=== PATIENT | female | born 1975 | race Caucasian/White ===

== ENCOUNTER → 2017-02-05 | Outpatient (CLI) | payer OTHER ==
--- NOTE | 2017-02-06 08:26 | MM ---
Reason for exam: screening (asymptomatic). Last mammogram was performed 4 years and 2 months ago. History: Taking hormonal contraceptives beginning at age 18. Physical Findings: A clinical breast exam by your physician is recommended on an annual basis and results should be correlated with mammographic findings. MG Screening Mammo w CAD Bilateral CC and MLO view(s) were taken. Prior study comparison: December 17, 2012, bilateral digital screening mammo w/CAD. December 30, 2010, [facility] DIGITAL RIGHT MAMMOGRAM w/CAD. The breast tissue is heterogeneously dense. This may lower the sensitivity of mammography. There is no discrete abnormality. No significant changes when compared with prior studies. ASSESSMENT: Negative, BI-RAD 1 RECOMMENDATION: Routine screening mammogram of both breasts in 1 year.
== END ==
LOC: RADMAMWWP 07:52
PROVIDERS: ATTEND Obstetrics & Gynecology
DX: Z12.31 Encounter for screening mammogram for malignant neoplasm of breast (principal)

== ENCOUNTER 2020-07-20 20:41 | Emergency (ER) | payer OTHER ==
[2020-07-20 20:52] VITALS: RESP 18
--- NOTE | 2020-07-20 21:17 | ED ---
General Adult HPI - General Chief complaint: Dizziness Stated complaint: Dizzy,LFt arm numbness Time Seen by Provider: 07/20/20 20:53 Source: patient Mode of arrival: ambulatory Limitations: no limitations - History of Present Illness Initial comments: Dictation was produced using [employer] dictation software. please excuse any grammatical, word or spelling errors. This patient was cared for during a federal and state declared state of emergency secondary to Covid 19 Chief Complaint: 44-year-old feel presents with generalized weakness, dizziness and left upper extremity sensory deficit History of Present Illness: 44-year-old female 3 weeks ago patient the Moderna Covid vaccine. Patient states that since then she's been having progressive symptoms of worsening weakness, left arm paresthesias and dizziness. Patient also states that she felt like she felt flushed. Patient states her symptoms are getting worse tonight her symptoms were the worst problem. Accompanied to the emergency department. Patient has no medical problems. She does have history of ALLERGIES in full sometimes take Zyrtec. She does not take anything on a regular basis. She does have one primary complaint but states that whatever happened today was not right. She had one glass 1 at 4 PM today. States that her symptoms seem to have started at rest. She feels weak on her feet. She has no pain complaints. The ROS documented in this emergency department record has been reviewed and confirmed by me. Those systems with pertinent positive or negative responses have been documented in the HPI. All other systems are other negative and/or noncontributory. PHYSICAL EXAM: General Impression: Alert and oriented x3, not in acute distress HEENT: Normocephalic atraumatic, extra-ocular movements intact, pupils equal and reactive to light bilaterally, mucous membranes moist. Cardiovascular: Heart regular rate and rhythm Chest: Able to complete full sentences, no retractions, no tachypnea Abdomen: abdomen soft, non-tender, non-distended, no organomegaly Musculoskeletal: Pulses present and equal in all extremities, no peripheral edema Motor: no focal deficits noted Neurological: CN II-XII grossly intact, no focal motor or sensory deficits noted, NIH of 0, no gait ataxia Skin: Intact with no visualized rashes Psych: Normal affect and mood ED course: 44-year-old female presents to the emergency department for myriad of complaints. She states she does not feel right however physical examination is benign. She has reported tingly feeling from her lateral mid humerus down to her lateral mid forearm vital signs upon arrival are within acceptable limits. EKG interpretation: Ventricular rate 89, normal sinus rhythm,. Interval 120, QRS 86, QTC 464. No SC prolongation, no QTC prolongation, no ST or T-wave changes noted. No old EKG for comparison. Overall, this EKG is unremarkable Laboratory evaluation obtained. CBC, metabolic panel is unremarkable. TSH level is normal. Serum alcohol is negative. Computed tomography scan of the brain is unremarkable. Chest x-ray is nonacute. Patient reevaluated at bedside . At this point continues to clear what is causing patient's symptoms. She has no high-risk features. She looks clinically well. Patient is advised follow-up with her primary care physician for outpatient management of her symptoms. - Related Data Allergies Allergy/AdvReac Type Severity Reaction Status Date / Time sulfamethoxazole Allergy Unknown Verified 07/20/20 20:52 [From Bactrim] trimethoprim [From Bactrim] Allergy Unknown Verified 07/20/20 20:52 Review of Systems ROS Statement: Those systems with pertinent positive or pertinent negative responses have been documented in the HPI. ROS Other: All systems not noted in ROS Statement are negative. Past Medical History Past Medical History: Asthma History of Any Multi-Drug Resistant Organisms: None Reported Past Surgical History: No Surgical Hx Reported Past Psychological History: No Psychological Hx Reported Smoking Status: Current every day smoker Past Alcohol Use History: Occasional Past Drug Use History: None Reported General Exam Limitations: no limitations Course Vital Signs 07/20/20 20:49 Temperature 99 F Pulse Rate 105 H Respiratory 18 Rate Blood Pressure 145/86 O2 Sat by Pulse 100 Oximetry Medical Decision Making - Lab Data Result diagrams: 07/20/20 21:15 07/20/20 21:15 Lab Results 07/20/20 07/20/20 07/20/20 Range/Units 21:15 21:15 21:15 WBC 6.5 (3.8-10.6) k/uL RBC 3.95 (3.80-5.40) m/uL Hgb 13.0 (11.4-16.0) gm/dL Hct 38.6 (34.0-46.0) % MCV 97.6 (80.0-100.0) fL MCH 32.9 (25.0-35.0) pg MCHC 33.8 (31.0-37.0) g/dL RDW 13.0 (11.5-15.5) % Plt Count 242 (150-450) k/uL MPV 7.0 Neutrophils % 48 % Lymphocytes % 43 % Monocytes % 5 % Eosinophils % 1 % Basophils % 0 % Neutrophils # 3.1 (1.3-7.7) k/uL Lymphocytes # 2.8 (1.0-4.8) k/uL Monocytes # 0.3 (0-1.0) k/uL Eosinophils # 0.1 (0-0.7) k/uL Basophils # 0.0 (0-0.2) k/uL Sodium 138 (137-145) mmol/L Potassium 3.8 (3.5-5.1) mmol/L Chloride 108 H (98-107) mmol/L Carbon Dioxide 23 (22-30) mmol/L Anion Gap 7 mmol/L BUN 11 (7-17) mg/dL Creatinine 0.55 (0.52-1.04) mg/dL Est GFR (CKD-EPI)AfAm >90 (>60 ml/min/1.73 sqM) Est GFR (CKD-EPI)NonAf >90 (>60 ml/min/1.73 sqM) Glucose 101 H (74-99) mg/dL Calcium 9.3 (8.4-10.2) mg/dL Magnesium 2.1 (1.6-2.3) mg/dL Troponin I <0.012 (0.000-0.034) ng/mL TSH 0.715 (0.465-4.680) mIU/L Serum Alcohol <10 mg/dL Disposition Clinical Impression: Weakness Disposition: HOME SELF-CARE Condition: Good Instructions (If sedation given, give patient instructions): Weakness (ED) Is patient prescribed a controlled substance at d/c from ED?: No Referrals: Damian Mehta MD [Primary Care Provider] - 1-2 days Time of Disposition: 22:11
[2020-07-20 21:22] LABS: Basophils % (A) 0 %; Eosinophils # (A) 0.1 k/uL (0-0.7); Eosinophils % (A) 1 %; HCT 38.6 % (34.0-46.0); Lymphocytes # (A) 2.8 k/uL (1.0-4.8); Lymphocytes % (A) 43 %; MCH 32.9 pg (25.0-35.0); MCHC 33.8 g/dL (31.0-37.0); MCV 97.6 fL (80.0-100.0); Monocytes # (A) 0.3 k/uL (0-1.0); Monocytes % (A) 5 %; Neutrophils # (A) 3.1 k/uL (1.3-7.7); Neutrophils % (A) 48 %; Platelet Count 242 k/uL (150-450); RBC 3.95 m/uL (3.80-5.40); WBC 6.5 k/uL (3.8-10.6)
[2020-07-20 21:33] LABS: African American GFR (CKD) >90 (>60 ml/min/1.73 sqM); Alcohol <10 mg/dL; Anion Gap 7 mmol/L; Blood Urea Nitrogen 11 mg/dL (7-17); Calcium 9.3 mg/dL (8.4-10.2); Carbon Dioxide 23 mmol/L (22-30); Chloride 108 mmol/L (98-107); Glucose 101 mg/dL (74-99); Magnesium 2.1 mg/dL (1.6-2.3); Non-African American GFR(CKD) >90 (>60 ml/min/1.73 sqM); Potassium 3.8 mmol/L (3.5-5.1); Sodium 138 mmol/L (137-145)
--- NOTE | 2020-07-20 21:34 | XR ---
EXAMINATION TYPE: XR chest 1V portable DATE OF EXAM: 07/20/2020 COMPARISON: NONE HISTORY: Dizziness TECHNIQUE: Single view FINDINGS: Heart and mediastinum are normal. Lungs are clear. Diaphragm is normal. Bony thorax appears normal. IMPRESSION: Normal chest.
[2020-07-20] MEDS ORDERED: SODIUM CHLORIDE 0.9% 1,000 ML IV STA (21:49)
--- NOTE | 2020-07-20 22:05 | CT ---
EXAMINATION TYPE: CT brain wo con DATE OF EXAM: 07/20/2020 COMPARISON: None HISTORY: c/o dizziness, left arm numbness CT DLP: 1094.4 mGycm Automated exposure control for dose reduction was used. Ventricles and sulci appear normal. There is no mass effect nor midline shift. There is no sign of in tracranial hemorrhage. The calvarium is intact. There is no evidence of cerebral edema. IMPRESSION: Negative unenhanced head CT scan.
[2020-07-20 22:29] VITALS: BP 131/84; PULSE 78; TEMP 98.2
== END 2020-07-20 22:30 | disposition home or self-care (01) ==
LOC: EC 20:41
DX: R53.1 Weakness (principal); R42 Dizziness and giddiness; R20.2 Paresthesia of skin; F17.200 Nicotine dependence, unspecified, uncomplicated; Z88.1 Allergy status to other antibiotic agents; Z88.2 Allergy status to sulfonamides
CPT/HCPCS: 36415; 70450; 71045; 80048; 80320; 83735; 84443; 84484; 85025; 93005; 96360; 99284

== ENCOUNTER → 2020-07-30 | Outpatient (CLI) | payer OTHER ==
--- NOTE | 2020-07-30 10:47 | P.STRESS ---
- Stress Test Note Stress Test Results/Findings: Exam Performed: stress echo exercise Exam Date: 07/30/20 Reason for Exam: Chest Pain Height: 5 ft 4 in Weight: 61.235 kg Protocol: Thanh Stage: 2 Duration of Exercise: 6:31 Resting Heart Rate: 94 Resting Blood Pressure: 126/78 Maximum Achieved Heart Rate: 163 Maximum Achieved Blood Pressure: 165/92 85% PMHR: 148 100% PMHR: 174 METS: 7.9 Technologist Comment: Stress Test Results/Findings: This is a 44-year-old female with history of smoking being evaluated for symptoms of chest pain, shortness of breath and palpitations. Patient also has COPD and asthma. Stress data: Baseline EKG showed sinus rhythm with normal DE interval and QRS duration. Her pressure at rest is 126/78 pulse rate of 94. Patient walked on the Thanh protocol for 6 minutes and 31 seconds achieving a maximal heart rate of 163 with blood pressure 165/92. EKGs taken during the exercise and after exercise did not reveal any significant changes from the baseline. Echo data: Baseline echo images showed normal wall motion and thickening. Images taken with exercise showed augmentation of wall motion and thickening in all the segments. A she did not express any chest pain. Final impression: #1. Negative stress test #2. Negative stress echo. #3. No arrhythmias noted. #4. Patient did not express any chest pain
--- NOTE | 2020-07-30 15:57 | ECHOS ---
Stress Test Results/Findings: Exam Performed: stress echo exercise Exam Date: 07/30/20 Reason for Exam: Chest Pain Height: 5 ft 4 in Weight: 61.235 kg Protocol: Thanh Stage: 2 Duration of Exercise: 6:31 Resting Heart Rate: 94 Resting Blood Pressure: 126/78 Maximum Achieved Heart Rate: 163 Maximum Achieved Blood Pressure: 165/92 85% PMHR: 148 100% PMHR: 174 METS: 7.9 Technologist Comment: Stress Test Results/Findings: This is a 44-year-old female with history of smoking being evaluated for symptoms of chest pain, shortness of breath and palpitations. Patient also has COPD and asthma. Stress data: Baseline EKG showed sinus rhythm with normal MA interval and QRS duration. Her pressure at rest is 126/78 pulse rate of 94. Patient walked on the Thanh protocol for 6 minutes and 31 seconds achieving a maximal heart rate of 163 with blood pressure 165/92. EKGs taken during the exercise and after exercise did not reveal any significant changes from the baseline. Echo data: Baseline echo images showed normal wall motion and thickening. Images taken with exercise showed augmentation of wall motion and thickening in all the segments. A she did not express any chest pain. Final impression: #1. Negative stress test #2. Negative stress echo. #3. No arrhythmias noted. #4. Patient did not express any chest pain MTDD
== END | disposition home or self-care (01) ==
LOC: RADNMMAIN 08:51
DX: R07.9 Chest pain, unspecified (principal); Z88.1 Allergy status to other antibiotic agents
CPT/HCPCS: 93351

== ENCOUNTER → 2022-11-07 | Outpatient (CLI) | payer BC ==
--- NOTE | 2022-11-07 10:46 | MM ---
Reason for Exam: Additional evaluation requested from abnormal screening. Last screening mammogram was performed less than 1 month ago. Patient History: Menarche at age 10. First Full-Term at age 18. Perimenopausal. Currently using Hormonal Contraceptives, starting at age 18. Risk Values: Vilma 5 year model risk: 0.8%. NCI Lifetime model risk: 8.3%. Tissue Density: Right: The breast tissue is heterogeneously dense. This may lower the sensitivity of mammography. Findings: Analyzed By CAD. The questioned area of medial asymmetric density does not persist on spot 3-D views. No significant change from prior exams. Overall Assessment: Benign, BI-RAD 2 Management: Screening Mammogram of both breasts in 1 year. . Results were given to the patient verbally at the time of exam. Patient should continue monthly self-breast exams. A clinical breast exam by your physician is recommended on an annual basis. This exam should not preclude additional follow-up of suspicious palpable abnormalities. Note on Vilma scores and lifetime risk: 1. A Vilma score greater than 3% is considered moderate risk. If this is the case, consider specialist referral to assess eligibility for a risk reducing agent. 2. If overall lifetime risk for the development of breast cancer is 20% or higher, the patient may qualify for future screening with alternating mammogram and breast MRI. Electronically signed and approved by: Suzie Marcum M.D. Radiologist
== END | disposition home or self-care (01) ==
LOC: RADMAMWWP 10:18
PROVIDERS: ATTEND Obstetrics & Gynecology
DX: R92.2 Inconclusive mammogram (principal); R92.8 Other abnormal and inconclusive findings on diagnostic imaging of breast; Z78.0 Asymptomatic menopausal state
CPT/HCPCS: 77061; 77065